=== PATIENT | female | born 1970 | race Caucasian/White ===

== ENCOUNTER 2017-06-05 20:04 | Emergency (ER) | payer OTHER ==
[~2017-06-05] VITALS: Ht 160 cm; Wt 71.7 kg
[2017-06-05 20:42] LABS: HEMATOCRIT 39.8 % (36.0-46.0); HEMOGLOBIN 13.4 G/DL (11.9-15.5); MCHC 33.7 G/DL (30.0-36.0); MCV 86.1 FL (83-99); RBC DIS.WIDTH-SD 43.6 % (39-53); RED BLOOD COUNT 4.62 M/uL (3.80-5.20); WHITE BLOOD COUNT 8.9 K/uL (4.1-10.2)
[2017-06-05 21:00] LABS: CHLORIDE 110 mEq/L (99-109); GLUCOSE 127 mg/dL (70-99); POTASSIUM 3.4 mEq/L (3.7-5.4); SODIUM 142 mEq/L (136-147)
[2017-06-05 21:04] LABS: CREATININE 0.8 mg/dL (0.6-1.3); GFR ESTIMATE (CALCULATED) > 59 mL/min/
[2017-06-05 21:05] LABS: PLATELET COUNT 266 K/uL (156-360); TROP-I INTERPRETATION NEGATIVE; TROPONIN-I < 0.01 ng/mL (0.0-0.30); UREA NITROGEN (BUN) 10 mg/dL (9-23)
[2017-06-05 21:06] LABS: D-DIMER ELISA < 150.00 ng/mLDDU (<230)
[2017-06-05 23:07] LABS: TROP-I INTERPRETATION NEGATIVE; TROPONIN-I 0.07 ng/mL (0.0-0.30)
[2017-06-06 00:18] VITALS: BP 110/75
== END 2017-06-06 00:20 | disposition home or self-care (01) ==
LOC: EME 20:04
PROVIDERS: Emergency Medicine
DX: R07.89 Other chest pain (principal); I49.3 Ventricular premature depolarization; R00.0 Tachycardia, unspecified; K51.90 Ulcerative colitis, unspecified, without complications
CPT/HCPCS: 71046; 80048; 84484; 85027; 85379; 93005; 99281; 99285; J7030